=== PATIENT | male | born 1970 | race Caucasian/White ===

== ENCOUNTER 2019-01-02 08:58 | Emergency (ER) | payer MEDICARE, OTHER ==
[~2019-01-02] VITALS: Ht 193 cm; Wt 95.2 kg
[~2019-01-02 08:58] MED LIST: CEPH500; HYDACE5; SULTRISS
[2019-01-02] MEDS ORDERED: BENADRYL25 MG PO (09:32)
[2019-01-02] MEDS ORDERED: GABA300 PO (09:33)
[2019-01-02] MEDS ORDERED: MELATONIN10 M2 PO (09:33)
[2019-01-02] MEDS ORDERED: Norco 10-325 T1 EACH PO (11:42)
== END 2019-01-02 12:08 | disposition home or self-care (01) ==
LOC: ER 08:58
DX: S70.12XA Contusion of left thigh, initial encounter (principal); M23.92 Unspecified internal derangement of left knee; X50.9XXA Other and unspecified overexertion or strenuous movements or postures, initial encounter; Z79.899 Other long term (current) drug therapy; F17.210 Nicotine dependence, cigarettes, uncomplicated
CPT/HCPCS: 73552; 96374; 96375; 99283-25; J1170; J2405

== ENCOUNTER → 2022-06-17 | Outpatient (CLI) | payer OTHER ==
[~2022-06-17] MED LIST changes: +BENADRYL25 MG PO; +GABA300 PO; +MELATONIN10 M2 PO; +Norco 10-325 T1 EACH PO
[2022-06-17 14:16] LABS: Adenovirus F 40/41 Not Detected (NOT DETECT); Astrovirus Detected (NOT DETECT); Campylobacter Sp Not Detected (NOT DETECT); Cryptosporidium Not Detected (NOT DETECT); Cyclospora Cayetanensis Not Detected (NOT DETECT); E. Coli O157 Not Detected (NOT DETECT); Entamoeba Histolytica Not Detected (NOT DETECT); Enteroaggregative E. coli-EAEC Not Detected (NOT DETECT); Enteropathogenic E. coli-EPEC Not Detected (NOT DETECT); Enterotoxigenic E. coli-ETEC Not Detected (NOT DETECT); Giardia Lamblia Not Detected (NOT DETECT); Norovirus GI/GII Not Detected (NOT DETECT); Plesiomonas Shigelloides Not Detected (NOT DETECT); Rotavirus A Not Detected (NOT DETECT); Salmonella Sp Not Detected (NOT DETECT); Sapovirus Not Detected (NOT DETECT); Shiga Toxin-prod E. coli-STEC Not Detected (NOT DETECT); Shigella/Enteroin E. coli-EIEC Not Detected (NOT DETECT); Vibrio Cholerae Not Detected (NOT DETECT); Vibrio Sp Not Detected (NOT DETECT); Yersinia Enterocolitica Not Detected (NOT DETECT)
== END | disposition home or self-care (01) ==
LOC: LAB SHORT 10:00 → LAB 10:00
PROVIDERS: Family Medicine
DX: K92.1 Melena (principal); R10.13 Epigastric pain
CPT/HCPCS: 87338; 87507